=== PATIENT | male | born 1925 | race African-American/Black ===

== ENCOUNTER 2016-07-31 18:09 | Emergency (ER) | payer OTHER ==
[~2016-07-31] VITALS: Ht 177.8 cm; Wt 77.1 kg
--- NOTE | ~2016-07-31 | EKG ---
[place] [address] [facility] [place] [address] ELECTROCARDIOGRAM REPORT Name: LYDIACOLLEEN Room #: [facility] M.RMundo#: [id number] Admission: Attend Phys: Discharge: Date of : 12/17[birth year] Report #: [id number] THIS REPORT FOR: //name// [facility] ED Test Date: 2016-07-31 Test Time: 19:01:03 Pat Name: COLLEEN FREEMAN Department: Room: Gender: Drapery Supervisor: GEGE : 1924-12-17 Requested By: Sunny Cintron Order Number: [id number] MD: Measurements Intervals [place] Rate: 52 P: 51 SC: 187 QRS: 33 QRSD: 164 T: -11 QT: 505 QTc: 470 Interpretive Statements Sinus rhythm Right bundle branch block Compared to ECG 07/12/2016 09:20:13 Sinus tachycardia no longer present Atrial premature complex(es) no longer present [email or web address] By: 190 190 Lo Blanchard MD /FELIPE
[~2016-07-31 18:09] MED LIST: ALLOPURINOL 10100 M1 PO; ALLOPURINOL 10100 M2 PO; ASPERDRINK81 MG PO; BAYER CHEWABLE81 MG PO; BIOFREEZE118 ML; CATAPRES0.1 MG PO; CEFPODOXIME PR200 M1 PO; CELEXA 20 MG TA20 MG PO; FEROSUL325 M1 PO; FLAGYL500 MG PO; HYDROCODONE-AP1 EAC6 PO; KEFLEX500 MG PO; LASIX 20 MG TAB20 MG PO; LORTAB 5 MG/5001 TA1 PO; MELATONIN3 M1 PO; METOPROLOL 100100 M1 PO; METOPROLOL TAR100 MG PO; OMEPRAZOLE20 M2 PO; PACERONE 200 M200 M1 PO; PAIN & FEVER325 MG PO; PANTOPRAZOLE SO40 M1 PO; PEPCID20 MG PO; PREDNISONE 10 M10 M1 PO; PREDNISONE 5 MG5 M1 PO; PRO STAT PO; RIVASTIGMINE1.5 MG PO; SEROQUEL 25 MG25 M1 PO; SEROQUEL 25 MG25 M2 PO; TRAZODONE HCL50 MG PO; TYLENOL325 MG PO; VITAMIN D-32000 UNIT PO; ZOFRAN ODT4 MG PO
[2016-07-31 20:23] LABS: HEMATOCRIT 32.7 % (42.0-52.0); HEMOGLOBIN 10.8 gm/dL (14.0-18.0); MCH 28.9 pg (26.0-34.0); MCHC 32.9 g/dL (28.0-37.0); MCV 87.8 fL (80.0-100.0); RBC 3.73 mil/uL (4.50-6.00); RDW 15.4 % (10.5-14.5); WBC 7.6 thou/uL (4.0-11.0)
[2016-07-31 20:34] LABS: URINE BILIRUBIN NEGATIVE (Negative); URINE BLOOD NEGATIVE (Negative); URINE COLOR YELLOW; URINE GLUCOSE-RANDOM* NEGATIVE (Negative); URINE KETONES NEGATIVE (Negative); URINE LEUKOCYTES-REFLEX NEGATIVE (Negative); URINE PROTEIN (DIPSTICK) TRACE (Negative); URINE SPECIFIC GRAVITY 1.025 (1.003-1.035); URINE UROBILINOGEN 0.2 E.U./dl (0.2-1.0)
[2016-07-31 20:39] LABS: ANION GAP 8 mmol/L (7-16); BUN 31 mg/dL (7-18); CALCIUM 8.8 mg/dL (8.5-10.1); CHLORIDE 114 mmol/L (98-107); CO2 24 mmol/L (21-32); CREATININE 2.5 mg/dL (0.7-1.3); GLUCOSE 110 mg/dL (74-106); POTASSIUM 4.4 mmol/L (3.5-5.1); SODIUM 146 mmol/L (136-145)
[2016-07-31 20:40] LABS: TROPONIN-I < 0.04 ng/mL (<0.04-0.07)
[2016-07-31 20:45] LABS: AMP/METHAMP Negative (Negative); BARBITURATES Negative (Negative); BENZODIAZEPINES Negative (Negative); COCAINE Negative (Negative); METHADONE Negative (Negative); OPIATES Negative (Negative); PCP Negative (Negative); THC Negative (Negative)
== END 2016-07-31 23:02 | disposition home or self-care (01) ==
LOC: ER 18:09 → EDBD 18:09 → ER 23:02
PROVIDERS: Emergency Medicine
DX: R40.0 Somnolence (principal); I10 Essential (primary) hypertension; F03.90 Unspecified dementia, unspecified severity, without behavioral disturbance, psychotic disturbance, mood disturbance, and anxiety; F41.9 Anxiety disorder, unspecified; Z88.0 Allergy status to penicillin; Z88.5 Allergy status to narcotic agent